=== PATIENT | female | born 1995 | race Caucasian/White ===

== ENCOUNTER → 2017-10-10 | Outpatient (CLI) | payer OTHER ==
[2017-10-10 10:12] LABS: HCT 40.1 % (34.0-46.0); HGB 14.1 gm/dL (11.4-16.0); MCH 30.5 pg (25.0-35.0); MCHC 35.2 g/dL (31.0-37.0); MCV 86.7 fL (80.0-100.0); Mean Platelet Volume 6.5; Platelet Count 316 k/uL (150-450); RBC 4.62 m/uL (3.80-5.40); RDW 12.4 % (11.5-15.5)
[2017-10-10 10:47] LABS: ALT 21 U/L (9-52); AST 24 U/L (14-36); Albumin 4.7 g/dL (3.5-5.0); Alkaline Phosphatase 63 U/L (38-126); Anion Gap 13 mmol/L; Blood Urea Nitrogen 10 mg/dL (7-17); Calcium 10.4 mg/dL (8.4-10.2); Carbon Dioxide 27 mmol/L (22-30); Chloride 103 mmol/L (98-107); Glucose 88 mg/dL (74-99); Potassium 4.7 mmol/L (3.5-5.1); Sodium 143 mmol/L (137-145); Total Bilirubin 1.6 mg/dL (0.2-1.3); Total Protein 8.1 g/dL (6.3-8.2)
== END | disposition home or self-care (01) ==
LOC: LABWHC1 08:50
PROVIDERS: ATTEND Internal Medicine Endocrinology, Diabetes & Metabolism
DX: R53.83 Other fatigue (principal)
CPT/HCPCS: 36415; 80053; 82533; 82607; 84146; 84439; 84443; 84480; 85027

== ENCOUNTER → 2017-10-11 | Outpatient (CLI) | payer OTHER ==
[2017-10-11 14:06] LABS: ALT 31 U/L (9-52); AST 23 U/L (14-36); Albumin 4.3 g/dL (3.5-5.0); Alkaline Phosphatase 64 U/L (38-126); Anion Gap 14 mmol/L; Blood Urea Nitrogen 7 mg/dL (7-17); Calcium 9.6 mg/dL (8.4-10.2); Carbon Dioxide 25 mmol/L (22-30); Chloride 103 mmol/L (98-107); Glucose 81 mg/dL (74-99); Potassium 4.2 mmol/L (3.5-5.1); Sodium 142 mmol/L (137-145); Total Bilirubin 1.3 mg/dL (0.2-1.3); Total Protein 7.3 g/dL (6.3-8.2)
== END | disposition home or self-care (01) ==
LOC: LABWHC1 13:11
PROVIDERS: ATTEND Internal Medicine Endocrinology, Diabetes & Metabolism
DX: R53.83 Other fatigue (principal); Z83.49 Family history of other endocrine, nutritional and metabolic diseases
CPT/HCPCS: 36415; 80053; 83970

== ENCOUNTER → 2021-01-09 | Outpatient (CLI) | payer OTHER | END | disposition home or self-care (01) | CPT/HCPCS: 76856 ==

== ENCOUNTER → 2021-02-27 | Outpatient (CLI) | payer OTHER ==
--- NOTE | 2021-02-27 10:35 | US ---
EXAMINATION TYPE: US pelvic complete DATE OF EXAM: 02/27/2021 COMPARISON: 01/09/2021 CLINICAL HISTORY: N83.0 Ovarian cyst. Follow up. Patient has IUD. TECHNIQUE: . Transabdominal sonographic images of the pelvis were acquired. Date of LMP: Patient has irregular cycles EXAM MEASUREMENTS: Uterus: 7.0 x 3.5 x 4.3 cm Endometrial Stripe: 0.5 cm Right Ovary: 3.9 x 2.8 x 1.5 cm Left Ovary: 1.5 x 1.2 x 1.0 cm 1. Uterus: Anteverted wnl 2. Endometrium: wnl. IUD visualized in good position 3. Right Ovary: Cystic area visualized measuring 2.0 x 0.9 x 1.4 cm. This measured 3.3 x 3.4 x 3.1 cm on 01/09/2021 4. Left Ovary: wnl 5. Bilateral Adnexa: wnl 6. Posterior cul-de-sac: wnl IMPRESSION: 1. Right ovarian cyst is smaller in size although does persist and may reflect a functional ovarian c ysts. 2. IUD is in place.
== END | disposition home or self-care (01) ==
LOC: RADUSWWP 10:06
PROVIDERS: ATTEND Obstetrics & Gynecology
DX: N83.201 Unspecified ovarian cyst, right side (principal); Z97.5 Presence of (intrauterine) contraceptive device
CPT/HCPCS: 76856

== ENCOUNTER → 2021-12-06 | Outpatient (CLI) | payer OTHER ==
--- NOTE | 2021-12-06 13:45 | XR ---
EXAMINATION TYPE: XR chest 2V DATE OF EXAM: 12/06/2021 COMPARISON: NONE HISTORY: Cough TECHNIQUE: Frontal and lateral views of the chest are obtained. FINDINGS: There is no focal air space opacity, pleural effusion, or pneumothorax seen. The cardiac silhouette size is within normal limits. There is bronchial wall thickening. The osseous structures are intact, spinal curvature. IMPRESSION: Correlate for bronchitis, follow-up as indicated
== END | disposition home or self-care (01) ==
LOC: RADXRYALE 10:26
PROVIDERS: ATTEND Internal Medicine
DX: R05.9 Cough, unspecified (principal)
CPT/HCPCS: 71046